=== PATIENT | male | born 1945 | race Caucasian/White ===

== ENCOUNTER 2017-04-12 09:11 | Emergency (ER) | payer MEDICARE, OTHER ==
[~2017-04-12] VITALS: Ht 175.3 cm; Wt 70.5 kg
[~2017-04-12 09:11] MED LIST: CARV25TA PO; ENOX80P SQ; HYDR-3129 PO; MULT-65 PO; NORT50CA PO; PROBCAP4 PO; RAMI2.5C29 PO; RANI150T PO; WARF5 PO
[2017-04-12 09:12] VITALS: BP 148/72; PULSE 83; RESP 18; TEMP 97.8; O2SAT 94
[2017-04-12] MEDS ORDERED: ALTA5CAP (09:48)
[2017-04-12] MEDS ORDERED: CARV25TA PO (09:48)
[2017-04-12] MEDS ORDERED: FLUO-1 PO (09:48)
[2017-04-12] MEDS ORDERED: ZANT150T2 PO (09:48)
[2017-04-12] MEDS ORDERED: LEVS0.123 PO (09:48)
[2017-04-12] MEDS ORDERED: NEUR100C PO (09:48)
[2017-04-12] MEDS ORDERED: FURO1TAB62 PO (09:48)
[2017-04-12] MEDS ORDERED: PROT40TA PO (09:48)
[2017-04-12] MEDS ORDERED: ASPI81TA81 (09:48)
[2017-04-12] MEDS ORDERED: VITA100T54 PO (09:48)
--- NOTE | 2017-04-12 10:05 | PD ---
HPI Chief Complaint: Pain: Acute or Chronic Time Seen by Provider: 09:37 Travel History International Travel<30 days: No Contact w/Intl Traveler<30days: No Traveled to known affect area: No History of Present Illness HPI 71-year-old male presents to the emergency room for evaluation of right knee pain for the past 4 days. States he has been having knee pain for a while but it worsened severely 4 days ago. States he may have twisted it on Tuesday but denies any specific trauma or injury. Patient believes he may have injured the soft tissues and is requesting an MRI. Pain is localized to the medial aspect of the right knee without radiation. Worse with range of motion and when he pushes on it. 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 States he came to the emergency room because his primary care physician is in [place] and he didn't know where else to go. He has not been taking anything for symptoms. He has been applying ice daily. 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) Endocrine: No Gastrointestinal Disorders: No GERD: No Genitourinary: No Hiatal Hernia: No Hypertension: Yes Immune Disorder: No Musculoskeletal: No Neurologic: Yes Psychiatric: No Reproductive: No Respiratory: No Migraines: No Seizures: No Ulcer: No Past Surgical History Abdominal Surgery: Yes (GALLBLADDER REMOVED) AICD: Yes (BIOTRONIK ILESTO 7HFT) Arteriovenous Shunt: No Cardiac Surgery: Yes (PACEMAKER/DEFIBULATOR 07-22-2014) Cholecystectomy: Yes Ear Surgery: No Endocrine Surgery: No Eye Surgery: No Genitourinary Surgery: No Gynecologic Surgery: No Insulin Pump: No Joint Replacement: No Oral Surgery: Yes (UPPER PARTIAL DENTURES ) Pacemaker: Yes (PACER/DEFIBULATOR) Thoracic Surgery: No Other Surgery: Yes Social History Alcohol Use: No Tobacco Use: No Substance Use: No Allergies-Medications (Allergen,Severity, Reaction): Coded Allergies: lisinopril (Unverified Allergy, Severe, Edema, 04/12/17) codeine (Unverified Allergy, Intermediate, Nasuea Vomiting, 04/12/17) Reported Meds & Prescriptions Reported Meds & Active Scripts Active Hydrocodone-Acetamin 5-325 mg (Hydrocodone/Acetaminophen) 5 Mg-325 Mg Tablet 1 Tab PO Q6HR Reported Vitamin B-1 (Thiamine HCl) 100 Mg Tab 100 Mg PO DAILY Zantac (Ranitidine HCl) 150 Mg Tab 150 Mg PO BID Altace (Ramipril) 5 Mg Cap Protonix (Pantoprazole Sodium) 40 Mg Tab 40 Mg PO DAILY Levsin (Hyoscyamine Sulfate) 0.125 Mg Tab 0.125 Mg PO DIRECTED Neurontin (Gabapentin) 100 Mg Cap 100 Mg PO BID Lasix (Furosemide) 20 Mg Tab 20 Mg PO DAILY Prozac (Fluoxetine HCl) 10 Mg Cap 10 Mg PO DAILY Carvedilol 25 Mg Tab 25 Mg PO BID Aspir-81 (Aspirin) 81 Mg Tabdr Review of Systems Except as stated in HPI: all other systems reviewed are Neg Physical Exam Narrative GENERAL: Well-nourished, well-developed male in no acute distress. Afebrile. Ambulatory. SKIN: Focused skin assessment warm/dry. No erythema or ecchymosis. HEAD: Normocephalic. EYES: No scleral icterus. No injection or drainage. NECK: Supple, trachea midline. No JVD or lymphadenopathy. CARDIOVASCULAR: Regular rate and rhythm without murmurs, gallops, or rubs. RESPIRATORY: Breath sounds equal bilaterally. No accessory muscle use. MUSCULOSKELETAL: No cyanosis. Very mild edema to the right medial knee. There is tenderness to palpation of the medial aspect. Full range of motion of the right knee. No calf tenderness. Data Data Last Documented VS Vital Signs Date Time Temp Pulse Resp B/P (MAP) Pulse Ox O2 Delivery O2 Flow Rate FiO2 04/12/17 09:12 97.8 83 18 148/72 (97) 94 Room Air Orders Orders Knee, Complete (4vws) (04/12/17 ) Dereck Bandage (04/12/17 11:33) MDM Medical Decision Making Medical Screen Exam Complete: Yes Emergency Medical Condition: Yes Medical Record Reviewed: Yes Differential Diagnosis Arthritis, inflammatory arthritis, internal derangement Narrative Course 71-year-old male presents to the emergency room for evaluation of right knee pain for the past 4 days. Patient denies any specific trauma or injury but states he may have twisted it 4 days ago. Pain is localized to the medial aspect. Physical exam reveals mild edema to the right medial knee with tenderness to palpation. There is no erythema, ecchymosis. He has full range of motion. He is ambulatory. Patient is requesting an MRI. He was informed that we do not perform MRIs routinely in the emergency room. He was offered x- ray which is essentially unremarkable. He was given name of the orthopedic surgeon on-call and told to follow-up with her for an orthopedist of his choosing for outpatient imaging. Discharged with Lortab. Patient denies true allergy to codeine, just makes him nauseous. Told to return for worsening symptoms. He understands and agrees to plan. Diagnosis Primary Impression: Internal derangement of right knee Referrals: Bertha Cortes MD Additional Instructions: Take hydrocodone as directed, as needed for pain. Apply ice to the affected area for 20 minutes at a time, as needed for pain and swelling. Follow-up with a primary care physician or orthopedist for further workup outpatient. Return to the emergency room for worsening symptoms. Scripts Hydrocodone/Acetaminophen (Hydrocodone-Acetamin 5-325 mg) 5 Mg-325 Mg Tablet 1 TAB PO Q6HR for Pain, #12 Prov: Grace Dawn DO 04/12/17 Disposition: 01 DISCHARGE HOME Condition: Stable Kathleen Barfield Apr 12, 2017 10:04
--- NOTE | 2017-04-12 11:19 | RADRPT ---
EXAM DATE/TIME: 04/12/2017 10:24 [facility] COMPARISON: No previous studies available for comparison. INDICATIONS : Right knee pain x 1 week twist knee while coming off ladder. MEDICAL HISTORY : None. SURGICAL HISTORY : None. ENCOUNTER: Initial ACUITY: 1 day PAIN SCORE: 7/10 LOCATION: Right Knee. FINDINGS: Four view examination of the right knee demonstrates no evidence of fracture or dislocation. Bony mi neralization is normal. The articular surfaces are intact. The suprapatellar soft tissues have a no rmal configuration. CONCLUSION: 1. There is no evidence of acute fracture. Konrad Cameron MD on April 12, 2017 at 11:15 Board Certified Radiologist. This report was verified electronically.
[2017-04-12] MEDS ORDERED: HYDR-3516 PO ×2 (11:33→11:38)
== END 2017-04-12 12:04 | disposition home or self-care (01) ==
LOC: NEPK 09:11
DX: M23.91 Unspecified internal derangement of right knee (principal); E78.00 Pure hypercholesterolemia, unspecified; I10 Essential (primary) hypertension; Z79.82 Long term (current) use of aspirin; Z79.899 Other long term (current) drug therapy; Z86.73 Personal history of transient ischemic attack (TIA), and cerebral infarction without residual deficits
CPT/HCPCS: 73564; 99283